=== PATIENT | female | born 1965 | race Caucasian/White ===

== ENCOUNTER 2018-08-05 20:41 | Emergency (ER) | payer BC ==
[2018-08-05] MEDS ORDERED: Acetaminophen/HYDROcodone 325-5 MG Tab PO ONE (21:35)
--- NOTE | 2018-08-05 21:38 | EDM.PDOC ---
ED HPI GENERAL MEDICAL PROBLEM - General Chief Complaint: ENT Problem Stated Complaint: INFECTED TOOTH Time Seen by Provider: 08/05/18 21:20 Source of Information: Reports: Patient, RN Notes Reviewed History Limitations: Reports: No Limitations - History of Present Illness INITIAL COMMENTS - FREE TEXT/NARRATIVE: Berna presents today for complaints of right upper jaw pain with radiation to the right ear. Right Upper Tooth/Teeth Pain Score (Numeric/FACES): 10 - Related Data Allergies Allergy/AdvReac Type Severity Reaction Status Date / Time aspirin Allergy Hives Verified 08/05/18 21:12 Penicillins Allergy Hives Verified 08/05/18 21:12 Home Meds: Home Meds Levothyroxine Sodium [Synthroid] 75 mcg PO ACBREAKFAST 08/05/18 [History] Venlafaxine HCl [Venlafaxine ER] 37.5 mg PO BID 08/05/18 [History] Past Medical History [employer] History: Reports: Neurological History: Reports: Seizure Endocrine/Metabolic History: Reports: Hypothyroidism Oncologic (Cancer) History: Reports: Other (See Below) Other Oncologic History: precancerous breast CA - Past Surgical History Female Surgical History: Reports: Section, Hysterectomy Musculoskeletal Surgical History: Reports: Arthroscopic Knee Oncologic Surgical History: Reports: Mastectomy Social & Family History - Tobacco Use Smoking Status *Q: Never Smoker - Caffeine Use Caffeine Use: Reports: Soda - Recreational Drug Use Recreational Drug Use: No ED ROS ENT - Review of Systems Review Of Systems: See Below Constitutional: Reports: Chills. Denies: Fever, Malaise, Weakness HEENT: Reports: Ear Pain, Other (Upper right dental pain with radiation to the right ear) Respiratory: Reports: No Symptoms Cardiovascular: Reports: No Symptoms GI/Abdominal: Reports: No Symptoms Musculoskeletal: Reports: No Symptoms Skin: Reports: No Symptoms Neurological: Reports: No Symptoms Psychiatric: Reports: No Symptoms Hematologic/Lymphatic: Reports: No Symptoms ED EXAM, ENT - Physical Exam Exam: See Below Text/Narrative:: Berna presents today for complaints of right upper dental pain with radiation to the right ear. Exam Limited By: No Limitations General Appearance: Alert, WD/WN, Mild Distress Eye Exam: Bilateral Eye: EOMI, Normal Inspection, PERRL Ears: Normal External Exam, Normal Canal, Hearing Grossly Normal, Normal TMs Nose: Normal Inspection, Normal Mucousa, No Blood Mouth/Throat: Normal Lips, Dental Pain, Dental Tenderness, Gum Swelling, Other ( multiple dental caries noted, edema and scant purulent drainage to #5,6 along gum line) Head: Atraumatic, Normocephalic Neck: Normal Inspection, Supple, Non-Tender. No: Full Range of Motion, Lymphadenopathy (R), Lymphadenopathy (L) Respiratory/Chest: No Respiratory Distress, Lungs Clear, Normal Breath Sounds, No Accessory Muscle Use Cardiovascular: Normal Peripheral Pulses, Regular Rate, Rhythm, No Edema, No Gallop, No Murmur, No Rub Back: Normal Inspection, Full Range of Motion. No: CVA Tenderness (R), CVA Tenderness (L) Extremities: Normal Inspection, Normal Range of Motion, Non-Tender, No Pedal Edema, Normal Capillary Refill Neurological: Alert, Oriented, CN II-XII Intact, Normal Cognition, Normal Gait, Normal Reflexes, No Motor/Sensory Deficits Psychiatric: Normal Affect, Normal Mood Skin: Warm, Dry, Intact, Normal Color, No Rash Lymphatic: No Adenopathy Course - Vital Signs Last Recorded V/S: Last Vital Signs Temp 37.6 C 08/05/18 21:13 Pulse 70 08/05/18 21:13 Resp 16 08/05/18 21:13 BP 130/79 08/05/18 21:13 Pulse Ox 99 08/05/18 21:13 - Orders/Labs/Meds Meds: Medications Discontinued Medications Generic Name Dose Route Start Last Admin Trade Name Rachel PRN Reason Stop Dose Admin Hydrocodone Bitart/Acetaminophen 1 tab 08/05/18 21:35 08/05/18 21:39 [place] 325-5 Mg PO 08/05/18 21:36 1 tab ONETIME ONE Administration - Re-Assessments/Exams Free Text/Narrative Re-Assessment/Exam: 08/05/18 21:30 Patient provided hydrocodone 5/325mg one tablet in ER. She is in agreement with plan. Departure - Departure Time of Disposition: 21:37 Disposition: Home, Self-Care 01 Condition: Good Clinical Impression: Infected dental caries - Discharge Information *PRESCRIPTION DRUG MONITORING PROGRAM REVIEWED*: No *COPY OF PRESCRIPTION DRUG MONITORING REPORT IN PATIENT KAREN: No Instructions: Dental Abscess, [id number] Referrals: Cassie Jesus MD [Primary Care Provider] - Forms: ED Department Discharge Additional Instructions: You have been evaluated and treated for infected dental caries. Take clindamycin as directed. You can take naproxen and acetaminophen as needed for pain. Follow up with a dentist as soon as possible for dental care. Return for worsening, issues or concerns. - Assessment/Plan Plan: Patient evaluated and treated for infected dental caries. Take clindamycin as directed. Take naproxen and acetaminophen as needed for pain. Suggested soft diet, use or probiotic. Follow up with a dentist as soon as possible for dental care. Return for worsening, issues or concerns.
== END 2018-08-05 21:47 | disposition home or self-care (01) ==
LOC: JP.ED 20:41
DX: K02.9 Dental caries, unspecified (principal); Z88.6 Allergy status to analgesic agent; Z88.0 Allergy status to penicillin
CPT/HCPCS: 99283; A9270

== ENCOUNTER 2023-04-23 11:47 | Emergency (ER) | payer OTHER, MEDICAID ==
[2023-04-23] MEDS ORDERED: Sodium Chloride 0.9% 10 ML Syringe FLUSH PRN (12:30)
== END 2023-04-23 15:06 | disposition home or self-care (01) ==
LOC: JP.ED 11:47
DX: S00.03XA Contusion of scalp, initial encounter (principal); E03.9 Hypothyroidism, unspecified; Z98.890 Other specified postprocedural states; Z79.899 Other long term (current) drug therapy; Z88.8 Allergy status to other drugs, medicaments and biological substances; Z88.6 Allergy status to analgesic agent; Z88.0 Allergy status to penicillin; W18.30XA Fall on same level, unspecified, initial encounter
CPT/HCPCS: 70450; 70450-26; 99283